=== PATIENT | female | born 1980 | race Caucasian/White ===

== ENCOUNTER → 2022-10-25 12:02 | Outpatient (BNVA) | payer OTHER, SELFPAY | PROVIDERS: Visit Provider Physician Assistant | DX: Z13.89 Encounter for screening for other disorder (principal) | CPT/HCPCS: 99213 ==

== ENCOUNTER 2023-04-24 09:45 | Outpatient (RCR) | payer OTHER, SELFPAY ==
--- NOTE | 2023-04-12 11:31 | P.HPPSP_ITS ---
HPI Date of Service: 04/12/23 Chief Complaint: anxiety,depression,JANNIE Sources of Information: patient interviewed, chart reviewed and crisis/core team assessment reviewed HPI Medical Problems Affecting Mental Status: No Narrative: Patient is a 42-year-old female, referred to [facility] through [facility]. 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 DCF was called, her 13-year-old son was temporarily removed from her home, residing with her friend. She was instructed that as a requirement being able to return to work, she needs to complete a PHP, and was referred here. She was angry/irritable during interview, states that she feels she was ?set up? by her supervisor newspaper deliveries. 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 On March 17 she says she relapsed for 1 day, and used heroin. Also has a history of IV cocaine use, states she has not used cocaine in past 2.5 years. Precipitants include a recent reduction in her methadone dosing, issues with her son that she did not wish to elaborate upon, and what she describes as a pink cloud , a hypomanic episode. She states her 2 sisters and her mother were all diagnosed with bipolar disorder. She explains that approximately 4 times per year, she has episodes 1-2 weeks at a time, with rapid, pressured speech, elevated mood, increased energy, little sleep but not feeling tired. She also experiences impulsive behaviors during this time. She denies any fully manic episodes. She has been diagnosed with depression, currently receives Celexa 10 mg. She had gastric sleeve surgery in October 2022, and reports her medication was changed at that time. She has been referred to [facility] for outpatient treatment, and is scheduled for an intake soon. Currently her primary care provider is prescribing her medications. She receives her methadone from [facility] in [place], reports that she has been working with them past 3 years. Describes a traumatic childhood, reports that she has had occasional depressed mood, has had therapy and providers in the past. Past Psychiatric History: Multiple detox/rehab, most recent in [id number]. No inpatient psych No PHP Past history therapy Will begin with services at [facility] for therapy/provider soon Medical Evaluation Reviewed: Yes [facility] Narrative: asthma Narrative: gastric sleeve surgery Family History: Mother, 2 sisters diagnosed with bipolar disorder Substance use disorder throughout immediate and extended family Social History: Raised by both parents, 1 biological sister, 1/2 sister. Parents when she was 13. Significant childhood trauma, both parents had JANNIE. Both parents now . Graduated high school, obtained associate degree. , 2 children. Substance History: Began using opioids age 32. Cocaine off and on. Last use cocaine 2.5 years ago. Maintain sobriety from opioids for 3 years, reports a 1 day relapse on 03/17/2023. Receives methadone from [facility]. Current DCF involvement. Trauma History: Chaotic childhood, both parents were active substance users. Victim, emotional, witness. Meds/Allergies Allergies Allergies Allergy/AdvReac Type Severity Reaction Status Date / Time No Known Allergies Allergy Unverified 07/29/20 19:00 [No Known Allergies*] Mental Status Exam Mental Status Exam Narrative: Well-developed, well-nourished, in NAD. Normal ambulation/posture. No tics or tremors, no abnormal movements. Guarded, irritable during interview. Rapid speech Patient Appearance: Appropriate Patient Orientation: Person, Place, Time and Situation Level of Consciousness: Appropriate Patient Behavior: Guarded, Suspicious and Good Eye Contact Mood Description: Angry (Describes that she is frustrated ) Affect Description: Labile and Angry Patient Cognition Impaired: No Ability to Follow Directions: Excellent Speech Pattern: Clear, Rapid and Loud Memory Description: Intact Hallucinations: None Delusions: Not Present Thought Process: Intact Thought Content: positive for Intact Depressive Symptoms: Increased Anxiety, Hopelessness, Feelings of Guilt and Difficulty Concentrating Judgement: Fair Assessment & Plan Assessment & Plan (1) Opioid dependence, uncomplicated: Status: Acute Code(s): F11.20 - Opioid dependence, uncomplicated Assessment and Plan: Patient reports long history opioid use disorder, started injecting heroin at age 32. Has been sober 3 years until a recent 1 day relapse on March 17. Currently enrolled in a methadone clinic in [place]. Reports that she was experiencing multiple stressors, and was in midst of what appears to be a hypomanic episode. She had also recently had her methadone dose decreased by 5 mg. She had gastric sleeve surgery several months ago, and had told her provider she was feeling drowsy with the methadone dose. We discussed asking provider to increase does possibly by 2 or 3 mg daily. Also participating in substance use groups while here. She was in agreement with this. (2) Major depressive disorder, recurrent, moderate: Status: Acute Code(s): F33.1 - Major depressive disorder, recurrent, moderate Assessment and Plan: Patient comes to this program with the diagnosis of depression. However, upon interview, she reports a history of bipolar symptoms, including periods of distractibility, irresponsibility, grandiosity, flight of ideas, little to no sleep and not feeling tired, talkativeness, days with increased energy, feeling great, super productivity. She states that these have occurred several times in a year, and then appear to resolve. Does not report using any substances during these periods of time. Also does not report any symptoms of severe depression. States that ?occasionally I get a depressed mood ?, but states that it is not ongoing. Does report getting anxious, states that this due to multiple stressors in her life. We discussed her current medication regimen. She currently is taking Celexa 10 mg. She is currently taking Topamax 50 mg, Abilify 5 mg. She reports that the Topamax to help with depression, the Abilify to help with mood stabilization. We discussed trialing oxcarbazepine. Patient will read about this medication before making a decision. (3) Bipolar 1 disorder: Status: Acute Code(s): F31.9 - Bipolar disorder, unspecified Plan 1. Continue with current [facility] plan of care. 2. Continue with current medication regimen as prescribed by outpatient provider. 3. Obtain labs and EKG. 4. Follow-up as per protocol. Patient educated on: diagnosis, medication risk/benefits, substance abuse and therapeutic strategies Informed Consent: understands Reason for continued partial hosp. stay Substantial Risk for: inability to function and rapid decompensation Certification I certify that partial hospital treatment is medically necessary due to the symptoms and problems resulting from the patient's mental illness and the failure to treat the patient at the partial hospital level of care would likely result in the patient requiring inpatient psychiatric care which could not be prevented at a less intensive level of care. Time Spent With Patient Time: Total time managing care of this patient today _60__ minutes.
--- NOTE | 2023-04-12 15:15 | HO.PHP ---
Clients case was reviewed and opened today in treatment team.
[2023-04-13 10:17] VITALS: BP 102/60; PULSE 80; TEMP 36.5
[2023-04-13 10:47] VITALS: BMI 33.5
--- NOTE | 2023-04-13 11:33 | PC.ADMIT ---
Patient is a 42 year old female who was referred by [facility] where Sol has been employed for the past year d/t relapsing on Heroin on March 17, 2023 after 3 years sobriety. Patient is on Methadone currently. 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 Patient also struggling with depression and anxiety. Denied SI. Patient noted by staff to be nodding off in morning group. I completed this nursing assessment on patient today as she left early yesterday as her boyfriends father passed suddenly. I reviewed with Sol that staff noted her to be nodding off in group and we were concerned about this. She stated that she took her Methadone dose at 0600 this morning and that it peaks at this time. She stated she noticed she was nodding off as well and stood up in the group as a result. She also stated she had a difficult time sleeping last night and woke up at 0430 this morning. She is alert and oriented x4. Calm and cooperative. VSS. She denied using any substances including IV Heroin and Cocaine. I asked her to complete a MORE and she was compliant. [facility] staff are aware. Patient medications reconciled with patient's pharmacy and patient. She reports she takes her medications as prescribed.
[2023-04-13 11:41] LABS: Amphetamine Screen Urine Not Detected (Not Detect); Barbiturates, Urine Not Detected (Not Detect); Benzodiazepines Screen Urine Not Detected (Not Detect); Cannabinoid Screen Urine Not Detected (Not Detect); Cocaine Screen Urine Not Detected (Not Detect); Fentanyl, urine POSITIVE (Not Detect); Opiate Screen Urine Not Detected (Not Detect); Phencyclidine Screen Urine Not Detected (Not Detect)
--- NOTE | 2023-04-13 15:01 | HO.PHP ---
[facility] staff met with Sol due to her testing positive for fentanyl. [facility] staff reviewed the positive drug screen with Sol and provided providers recommendation by attending a detox program. Sol became argumentative and was swearing at and towards the staff. Sol had stated that she has not been using fentanyl and the last time she had used was March 17, 2023. Sol disclosed that she has been testing positive for fentanyl for 3 weeks and has the test strips at home. Sol continued to voice she is not high and asked if she could go to the group or go home. [facility] staff informed her due to safety concerns and how she presented within the group setting today (struggling to stay awake and not being actively engaged), we feel it is best to order a lyft and that she does not drive home. Sol continued to escalate and become upset verbally. [facility] staff encouraged Sol to meet with the senior db2 systems programmer but Sol did not want to do that. [facility] staff still got the senior db2 systems programmer due to how escalated she was. Sol was able to regulate but was still swearing out of frustration. The transition program manager encouraged her to think about detox over the weekend and informed her that she is going to order her a lyft. The transition program manager informed Sol that we are concerned about her safety and well being and want to make sure she is safe. Sol continued to deny being high and noted feeling frustrated that individuals continue to say she is on drugs when she is not using. Sol handed the senior db2 systems programmer her keys to let her know she would not be leaving. Sol was able to regulate and walk to the [facility] while awaiting the pharmacy delivery driver. [employer] had no available drivers so Sol's boyfriend noted he would pick her up. While waiting Sol asked what she would be detoxing from if she is already on methadone. [facility] staff informed her from fentanyl and encouraged her to talk to the methadone clinic around the side effects around using fentanyl while on methadone. Sol disclosed she will when she goes Sunday. [facility] staff was receptive. Sol also talked about other providers who addressed how she has presented as being under the influence of a substance and also noted negative outcomes that her nps recently informed her of. Sol was emotional when expressing this. Sol was appropriate and cooperative once she was able to process. Sol talked about her job and what her new position is. 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 [facility] staff encouraged Sol to have someone drive back with her and her boyfriend so someone can drive her car home. Slo was receptive. When Sol's boyfriend had arrived, [facility] staff walked Sol to the car, in which the boyfriend became verbally upset informing staff that we are ridiculous. [facility] staff did not acknowledge the boyfriends reaction. [facility] staff encouraged Sol to have a great weekend and we will see her Sunday. Sol was receptive. [facility] staff provided her with her keys and her and her boyfriend drove off.
--- NOTE | 2023-04-16 12:28 | PM.EVENT ---
Event Note Date of Service: 04/16/23 Event Note: Met with patient to complete FMLA paperwork Time Spent With Patient Time: Total time managing care of this patient today _15___ minutes.
[2023-04-17 13:33] LABS: Amphetamine Screen Urine Not Detected (Not Detect); Barbiturates, Urine Not Detected (Not Detect); Benzodiazepines Screen Urine Not Detected (Not Detect); Cannabinoid Screen Urine Not Detected (Not Detect); Cocaine Screen Urine Not Detected (Not Detect); Fentanyl, urine POSITIVE (Not Detect); Opiate Screen Urine Not Detected (Not Detect); Phencyclidine Screen Urine Not Detected (Not Detect)
--- NOTE | 2023-04-19 11:18 | P.PNPSP_ITS ---
Subjective Subjective Date of Service: 04/19/23 Reason For Visit: anxiety,depression,JANNIE Medical Problems Affecting Mental Status: No Interim History: Clinicians report patient has been not in off in groups throughout the day. Patient reports that it is hard for her to sit all day, finds it monotonous at times. Has sleep apnea, has not been receiving adequate sleep, has not been using her CPAP. Reports she has remained abstinent from substances. Describes mood as ?good, I feels stable ?. No SI/HI, no safety concerns. Lost paperwork for labs and EKG. Medication Compliance: Yes Side effects from medications: Yes (Sedation, possibly related to methadone dose) Attending Groups: Yes Review of Systems Acute medical concerns: No Medical Review of Systems: unchanged Review of Systems Review of Systems Sleep apnea Yes all other systems are reviewed and are negative Constitutional: Reports no additional constitutional complaints Mental Status Exam Mental Status Exam Narrative: NAD Patient Appearance: Appropriate Patient Orientation: Person, Place, Time and Situation Level of Consciousness: Appropriate Patient Behavior: Appropriate, Cooperative and Good Eye Contact Mood Description: Appropriate Affect Description: Anxious (Slightly anxious) Patient Cognition Impaired: No Ability to Follow Directions: Excellent Speech Pattern: Clear and Appropriate Memory Description: Intact Hallucinations: None Delusions: Not Present Thought Process: Intact Thought Content: positive for Intact Depressive Symptoms: Increased Anxiety, Feelings of Guilt and Difficulty Concentrating Judgement: Fair Diagnostics Vital Signs (24Hr): BMI result Body Mass Index 33.5 Labs Labs: Laboratory Results - last 48 hr 04/17/23 12:40 Urine Opiates Screen Not Detected Urine Fentanyl Screen POSITIVE H Ur Barbiturates Screen Not Detected Ur Phencyclidine Scrn Not Detected Ur Amphetamines Screen Not Detected U Benzodiazepines Scrn Not Detected Urine Cocaine Screen Not Detected U Marijuana (THC) Screen Not Detected Assessment & Plan Assessment & Plan (1) Opioid dependence, uncomplicated: Status: Acute Code(s): F11.20 - Opioid dependence, uncomplicated Assessment and Plan: Clinicians report patient has been not in off in groups throughout the day. Discussed her methadone dosing, both the dose itself and the schedule. She takes 65 mg in the morning. She has take home doses, will take her take home dose tomorrow after program, to see if this helps with level of sedation. Reports that the group room is hot, which adds to her feeling tired. We also discussed having dose lowered, as she had gastric sleeve surgery completed in October, this could be causing AP issue with over-sedation, related to level of absorption. Release of information form completed, this provider to reach out to provider at methadone clinic. Patient reports that it is hard for her to sit all day, finds it monotonous at times. Discussed several things that she could do, including sitting by the window, drinking water, getting up in stretching. She stated that she would try these things. Has sleep apnea, has not been receiving adequate sleep, has not been using her CPAP. She reports she will try her CPAP tonight, to see if it helps improve her level of alertness tomorrow. Reports she has remained abstinent from substances. Describes mood as ?good, I feels stable ?. Taking medications as prescribed. We discussed changing timing of her Abilify and topiramate to evenings, to see if this also will help improve her level of alertness in the morning. No SI/HI, no safety concerns. Lost paperwork for labs and EKG. Reviewed labs to be ordered, including Chem profile, CBC, as well as EKG. Discussed positive fentanyl screens, waiting for expanded panel results. Patient states she is willing to submit to any testing that is requested, as she has not used any substances except for the 1 time in early March. (2) Major depressive disorder, recurrent, moderate: Status: Acute Code(s): F33.1 - Major depressive disorder, recurrent, moderate (3) Bipolar 1 disorder: Status: Acute Code(s): F31.9 - Bipolar disorder, unspecified Assessment and Plan: Provisional dx. No mood lability reported or observed, no evidence of hypomania or miles present. Plan 1. Speak with provider at methadone Clinic, our ED: Changing dosing schedule to evenings, possible dose decrease. This functional tester typewriters has left several messages for provider to call back. 2. Patient will use her CPAP machine tonight, as well as switching her Abilify and Topamax scheduling from morning to evening. 3. Patient will hold off on morning methadone tomorrow morning, will use her take home dose after program. 4. Lab slip provided for Chem profile, CBC, EKG. 5. Follow-up as per protocol. Patient educated on: diagnosis, medication risk/benefits, substance abuse and therapeutic strategies Reason for contiued partial hosp. stay Substantial Risk for: inability to function, rapid decompensation and med/psych decompensation Certification I certify that partial hospital treatment is medically necessary due to the symptoms and problems resulting from the patient's mental illness and the failure to treat the patient at the partial hospital level of care would likely result in the patient requiring inpatient psychiatric care which could not be prevented at a less intensive level of care. Total time managing care of this patient today __30__ minutes. Discharge Plan Discharge Attending provider: Benjamín Temple Medications: No Action aripiprazole 5 mg tablet 5 mg PO DAILY topiramate 50 mg tablet 50 mg PO DAILY methadone [Methadone Intensol] 10 mg/mL Concentrate 65 mg PO DAILY albuterol sulfate [Ventolin HFA] 90 mcg/actuation HFA aerosol inhaler 1 puff INHALATION QID PRN (Reason: wheezing) escitalopram oxalate 10 mg tablet 10 mg PO DAILY budesonide-formoterol [Symbicort] 160-4.5 mcg/actuation HFA aerosol inhaler 2 inh inhalation BID
[2023-04-24 08:36] LABS: Codeine, Ur NEGATIVE; Hydrocodone, Ur NEGATIVE; Morphine, Ur NEGATIVE; Oxycodone, Ur NEGATIVE
[2023-04-24 08:37] LABS: Hydromorphone, Ur NEGATIVE; Norhydrocodone, Ur NEGATIVE; Noroxycodone, Ur NEGATIVE; Oxymorphone, Ur NEGATIVE
--- NOTE | 2023-04-24 14:03 | HO.PHP ---
[facility] staff member's, Anthony met with Sol to explore discharge. [facility] staff members thanked Sol for coming to groups and noted that it must be challenging for her since she appears to be tired. Sol acknowledged that it has been challenging and they are working on reducing her methadone now but it takes time for her to see affects. The team acknowledged the challenges she is having and voiced that we know tomorrow she won't be attending program and Sunday she won't be either. [facility] staff members asked Sol if it makes sense to discharge today. Sol agreed and explored if she would receive paperwork stating she completed the program. [facility] staff members informed her that she will have discharge paperwork to show her completion. Sol was receptive.
== END 2023-04-24 23:59 | disposition home or self-care (01) ==
LOC: HO.PHPA 09:45
PROVIDERS: Nurse Practitioner Psychiatric/Mental Health; Visit Provider Psychiatry & Neurology Psychiatry
DX: F33.1 Major depressive disorder, recurrent, moderate (principal); F31.9 Bipolar disorder, unspecified; F41.1 Generalized anxiety disorder; F11.20 Opioid dependence, uncomplicated
CPT/HCPCS: 80307; 80364; 80365; 90791; 90853

== ENCOUNTER 2025-10-18 11:30 | Emergency (ER) | payer OTHER, SELFPAY ==
--- OUTSIDE RECORDS SUMMARY | 2025-07-07 10:30 | XMS_ITS ---
Author Organization [facility] Address [address] [place] [address] Care Team Providers Care Crop Duster Helper Name Role Phone JOYA PATRICK Unavailable [phone] REASON FOR VISIT IUD Out Social History Sex Assigned At : Social History Observation Description Sex Assigned At Female Encounters Encounter Location Date Provider Diagnosis [facility] [address] [place] [address] [id number] 07/07/2025 JOYA PATRICK Plan Of Treatment Next Appt Details Provider Name:SRIKANTH LANE, 09:00:00 AM, [address] [place] [address], [id number], Progress Notes * Sol OLEA RDOB:12/1979 (45 yo F)Acc No.[id number]:07/07/2025 Progress Note Patient: Sol Almonte Provider: Susie Patrick NP :1980 A ge:44 Y S ex:Female Date:07/07/2025 Address:[address] [place], [place] [id number] Subjective: * Chief Complaints: * I UD Out * Electronic signature of ELLEN PATRICK NP on 10/18/2025 at 01:00 PM EST Sign off status: Pending * Provider: Susie Patrick NP Date: 0 07/07/2025 Generated for Printi ng/Faxing/eTransmitting on: 1 12/19/2024 01:00 PM EST
--- OUTSIDE RECORDS SUMMARY | 2025-10-14 04:15 | XMS_ITS ---
Author Organization [facility] Address [address] [place] [address] Care Team Providers Care Lan Administrator Name Role Phone SRIKANTH LANE Unavailable [phone] REASON FOR VISIT Annual Exam, IUD removal Medications Medication SIG (Take, Route, Frequency, Duration) Notes Start Date End Date Status Symbicort Active SEROquel Active Mirena inserted 08/31/2015 Active Lexapro Active Social History Sex Assigned At : Social History Observation Description Sex Assigned At Female Social History HIV Risk Assessment Social Info Question Answer Notes Additional Questions Is an HIV Risk Assessment being c onducted? No Reproductive Life Plan: Social Info Question Answer Notes Reproductive Life Plan: Do you want to have children? No How sure are you that you will be able to use your control method without any problems? Very sure Human Trafficking: Social Info Question Answer Notes Human Trafficking Experienced: No PrEP for HIV: Social Info Question Answer Notes PrEP for HIV Is the client intere sted in beginning/continuing PrEP for HIV? No Sexual History: Social Info Question Answer Notes Sexual History: Sexual History Reviewed: Partner s, Practices, Prevention of Currently sexually active? Yes Sexually active with: Men Number of male partners 1 technician terminal and repeater partner Your sexual activities include: oral intercourse, vaginal intercourse Date of last unprotected intercourse: 09/30/2025 Number of partners in past 3 months: 1 Number of partners in past year: 1 What is the client's primary method to prevent at the end of their visit? IUD - Mirena Completed Gardasil vaccinati on series? Yes Counseling Provided: Social Info Question Answer Notes Counseling Provided Please indicate the length of time, in minutes, that counseling was provided. 6 Counseling Was Provided By: mela Drugs/Alcohol: Social Info Question Answer Notes Drug/Alcohol Use Do you or have you used drugs? No Do you or have you used alcohol? No Food Access: Social Info Question Answer Notes Food Access The Client's current access to food is Secure Food Access Relationships: Social Info Question Answer Notes Relationships Has the client exper ienced any of the following: Client has never experienced harmful relationships Housing Social Info Question Answer Notes Housing The client's current living situation is: stable housing Tobacco Use: Social Info Question Answer Notes Tobacco Use: Do you/have you used tobacco? No Client Vapes Tobacco Smoking Status Former smoker Section Notes: Declines STI testing Encounters Encounter Location Date Provider Diagnosis [address] [id number] 10/14/[address] Encounter for gynecological examination (general) (routine) without abnormal findings Z01.419 ; Encounter for screening for human papillomavirus (HPV) Z11.51 and IUD Removal Z30.432 Assessments Encounter Date Diagnosis (ICD Code) Assessment Notes Treatment Notes Treatment Clinical Notes Section Notes 10/14/2025 Encounter for gynecological examination (general) (routine) without abnormal findings (ICD-10 - Z01.419) Discussed routine screenings and self breast/chest awareness. Mammogram screening recommendations reviewed. Clt up to date. Pap guidelines reviewed and pap collected. Will confirm follow up plan regarding pap screening given hx of abn once results back. 10/14/2025 Encounter for screening for human papillomavirus (HPV) (ICD-10 - Z11.51) 10/14/2025 IUD Removal (ICD-10 - Z30.432) IUD strings present on exam today. Clt provided verbal consent for removal today. Pap consent signed after procedure. Clt tolerated well. Clt to schedule Nexplanon insertion. Condom use encouraged. Clt declined urine PT today Plan Of Treatment Treatment Notes Assessment Notes Encounter for gynecological examination (general) (routine) without abnormal findings Discussed routine screenings and self breast/chest awareness. Mammogram screening recommendations reviewed. Clt up to date. Pap guidelines reviewed and pap collected. Will confirm follow up plan regarding pap screening given hx of abn once results back. IUD Removal IUD strings present on exam today. Clt provided verbal consent for removal today. Pap consent signed after procedure. Clt tolerated well. Clt to schedule Nexplanon insertion. Condom use encouraged. Clt declined urine PT today Pending Test Test Name Order Date IGP, Apt HPV,rfx 16/[id number] Next Appt Details Follow Up: soon, Reason: Nex planon insertion Provider Name:SRIKANTH LANE, 09:00:00 AM, [address] [place] [address], [place], [place], [phone], Procedure Notes * Category Sub-Category Detail Notes IUD Removal Consent Risks and benefi ts discussed. All questions answered. Informed consent signed Procedure Patient was placed i n the dorsal lithotomy position. A speculum was inserted into the vagina. IUD strings grasped with ring forceps and IUD removed easily. The patient tolerated the procedure well. History and Physical Notes * HPI (History of Present Illness) Category Sub-Category Detail Notes Category Not es Visit Narrative Reason for the visit: Annual Visit Declines STI testing Clt here for annual exam. Last pap: 2020 NIL, HPV neg. HPV positive in 2018. Due for repeat pap BR concerns: none Mammogram: 1 month ago, normal per clt. Hx of complex BR cyst in 2020. No concerns today SENIOR BUSINESS ARCHITECT concerns: none, no menses Urinary concerns: none BC: plans to have Nexplanon inserted. Would like IUD removed today if strings visible STI: reports testing just done recently with outside provider- declines today Mirena IUD since 08/2015. No strings back in 2022 for removal. Has not have imaging or removal attempt since. Would like removal today if strings present. Has referral to SENIOR BUSINESS ARCHITECT thru [facility] [place] for removal otherwise- no appointment scheduled yet Current form of control: Mirena Presenting Symptoms: No sx LMP: 10/12/2009 About 16 years ago per client Last date of UPI: 09/30/25 Other notes for the Clinician: Clients l ast appt they could not find IUD strings for removal and she would like it removed. Client would like clincian to check to see if strings can be found if not she has a referral from her PCP for U/s to remove Mirena Date of last pap smear: 2020 per client NIL/ HPV negative History of abnormal pap smears: Yes Client would like breast exam done/ no current breast concerns Examination Category Sub-Category Detail Notes Category Not es General Exam CONSTITUTIONAL: General Appearan ce:: alert, in no acute distress Clt opted to defer BR exam as just done recently NECK/THYROID: Inspection/Palpation:: normal Thyroid:: normal size and shape RESPIRATORY: Auscultation:: clear to ausculta tion bilaterally Respiratory Effort:: normal CARDIOVASCULAR: Auscultation:: regular rate and rhythm GASTROINTESTINAL: Abdomen:: no masses, nontender , nondistended SKIN: Skin:: no suspicious lesions, wa rm and dry NEURO/PSYCH: Orientation:: time , place, pers on Mood/Affect:: normal Genitourinary EXTERNAL GENITALIA: External Gen nolvia:: normal, no lesions Clt opted to defer bimanual exam VAGINA: Vagina:: normal appe arance, no abnormal discharge, no lesions URETHRAL MEATUS: Urethral Meatus:: normal CERVIX: Cervix:: no lesions, nontender I UD strings present ANUS AND PERINEUM: Anus/Perineum:: visually norm al Progress Notes * Sol OLEA RDOB:12/1979 (45 yo F)Acc No.[id number]:10/14/2025 Progress Notes Patient: Sol Almonte Provider: Sylvester LANE :1980 A ge:45 Y S ex:Female Date:10/14/2025 Address:[address] [place], [place] [id number] Subjective: * Chief Complaints: * A nnual ExamIUD removal * HPI: V isit Narrative: Reason for the visit: A nnual Visit. Current form of control: M mayda. Presenting Symptoms: N o sx. LMP: 1 12/13/2008 About 16 years ago per client. Last date of UPI: 1 11/30/24. Other notes for the Clinician: Regina hickey last appt they could not find IUD strings for removal and she would like it removed. Client would like clincian to check to see if strings can be found if not she has a referral from her PCP for U/s to remove Mirena Date of last pap smear: 2020 per client NIL/ HPV negative History of abnormal pap smears: Yes Client would like breast exam done/ no current breast concerns. Declines STI testing Clt here for annual exam. Last pap: 2020 NIL, HPV neg. HPV positive in 2018. Due for repeat pap BR concerns: none Mammogram: 1 month ago, normal per clt. Hx of complex BR cyst in 2020. No concerns today SENIOR BUSINESS ARCHITECT concerns: none, no menses Urinary concerns: none BC: plans to have Nexplanon inserted. Would like IUD removed today if strings visible STI: reports testing just done recently with outside provider- declines today Mirena IUD since 08/2015. No strings back in 2022 for removal. Has not have imaging or removal attempt since. Would like removal today if strings present. Has referral to SENIOR BUSINESS ARCHITECT thru [facility] [place] PCP for removal otherwise- no appointment scheduled yet. * ROS: s ee HPI. * Medical History: Asthma Abnormal paps- >10 years ago, 2017 +Hep C treated BV Treated proph for syphilis 02/2016 after known exposure HSV 2 Hx of IVDA, last use Medical History Verified * Silver Steward History: A bnormal pap smear: > 10 years ago. B irth control: M mayda intrauterine device. L ast mammogram date: 11/2024: Mammogram screening normal per clt.06.30.21 F/u ultrasound reviewed. Near complete resolution of complex cystic area. BIRADS 2 benign. No further management needed at this time. Recommend routine annual mammogram screeningReviewed 6 month follow up of L BR complex cyst at 9:00, 7cm from nipple has almost completely resoved. Most likely represented an area of fat necrosis. New area of complainted evaluted at 11:00, 6cm from nipple. 1.8cm complex cyst with increase vascularity suspicious for an infectious/inflammatory process. Clinical management recommended with follow up ultrasound in 6 weeks after treatment.L BR lump. Mammo/Ultrasound done on 10.15.2020. BIRADS 3 probably benign. Found area with mixed echogenicity [id number] with no internal flow that may represent a complex cyst. Recommended follow up ultrasound in 6 months.. L ast menstrual period: 2 009 due to reocurrent IUD use. L ast pap smear date: 12/15/24 pap [id number]- NIL/HPV [id number] NIL, HPV neg, repeat 1 yr06/18/2018 NIL, HPV+. Repeat 1 yr. M enarche: A ge of menarche [age] P eriods: a menorrhea due to Mirena. S exual activity: c urrently sexually active, with men. S exually Transmitted Diseases (STDs): N one. U nprotected sex in the last 5 days?: N o. U nprotected sex in the past 10 days?: N o. * OB History: T otal pregnancies: 5 . T otal living children: 2 . A bortion(s): 2 . M iscarriage(s): 1 . C section(s): 2 . P regnancy # 1: P rimary . P regnancy # 2: R epeat . * Surgical History: Lung biopsy to r/o malignancy after snorting cocaine 2012 C-sec 2005 C-sec 2009 Gastric Bypass 2022 Surgical History verified. * Hospitalization/Major Diagno stic Procedure: No Hospitalization Documented. Hospitalization Verified. * Family History: F ather: diagnosed with HBP, Diabetes, Heart Disease. F amily History Verified.. * Social History: F ood Access: F ood Access T he Client's current access to food is S ecure Food Access H ousing: H ousing T he client's current living situation is:?stable housing R eproductive Life Plan: R eproductive Life Plan D o you want to have children? N o H ow sure are you that you will be able to use your control method without any problems? V pre[place] sure S exual History: S exual History S exual History Reviewed: P artners, Practices, Prevention of C urrently sexually active? Y es S exually active with: M en N umber of male partners 1 technician terminal and repeater partner Y our sexual activities include: o ral intercourse, vaginal intercourse D ate of last unprotected intercourse: 1 11/30/2024 N umber of partners in past 3 months: 1 N umber of partners in past year: 1 W hat is the client's primary method to prevent at the end of their visit? I UD - Mirena C ompleted Gardasil vaccination series? Y es H IV Risk Assessment: A dditional Questions I s an HIV Risk Assessment being conducted??No P rEP for HIV: P rEP for HIV I s the client interested in beginning/continuing PrEP for HIV? N o R elationships: R elationships H as the client experienced any of the following: Regina cortes has never experienced harmful relationships H uman Trafficking: H uman Trafficking E xperienced: N o T obacco Use: T obacco Use D o you/have you used tobacco? N o Client Vapes T obacco Smoking Status F ormer smoker D rugs/Alcohol: D rug/Alcohol Use D o you or have you used drugs? N o D o you or have you used alcohol? N o Regina ryder Provided: Regina ryder Provided P lease indicate the length of time, in minutes, that counseling was provided. 6 Regina ryder Was Provided By: sylvester Guerrero ocial History Verified. Lyssa harper STI testing. * Medications: T akingLexapro SEROquel Mirena , Notes to Pharmacist: inserted 08/31/2015Symbicort Taking Lexapro Taking SEROquel Taking Mirena , Notes to Pharmacist: inserted 08/31/2015Taking Symbicort DiscontinuedAbilify ProAir HFA Topamax Escitalopram Oxalate , Notes to Pharmacist: 10mgMethadone HCl hydrOXYzine HCl Suboxone Flovent HFA Medication List reviewed and reconciled with the patientDiscontinued Abilify Discontinued ProAir HFA Discontinued Topamax Discontinued Escitalopram Oxalate , Notes to Pharmacist: 10mgDiscontinued Methadone HCl Discontinued hydrOXYzine HCl Discontinued Suboxone Discontinued Flovent HFA Medication List reviewed and reconciled with the patient * Allergies: y esAllergies Verified. Objective: * Examination: G enitourinary: EXTERNAL GENITALIA: ?VAGINA:? Vagina: n ormal appearance, no abnormal discharge, no lesions ?URETHRAL MEATUS:? Urethral Meatus: n ormal ?CERVIX:? Cervix: n o lesions, non-tender IUD strings present ?ANUS AND PERINEUM:? Anus/Perineum: v isually normal ???Clt opted to defer bimanual exam. ???General Exam: ?CONSTITUTIONAL:? General Appearance: a lert, in no acute distress ?NECK/THYROID:? Inspection/Palpation : n ormal ? Thyroid: n ormal size and shape ?RESPIRATORY:? Auscultation: c lear to auscultation bilaterally ? Respiratory Effort: n ormal ?CARDIOVASCULAR:? Auscultation: r egular rate and rhythm ?GASTROINTESTINAL:? Abdomen: n o masses, nontender, nondistended ?SKIN:? Skin: n o suspicious lesions, warm and dry ?NEURO/PSYCH:? Orientation: t ashok , place, person ? Mood/Affect: n ormal ???Clt opted to defer BR exam as just done recently. Assessment: * Assessment: 1. E ncounter for gynecological examination (general) (routine) without abnormal findings - Z01.419 (Primary) 2 . E ncounter for screening for human papillomavirus (HPV) - Z11.51 3 . I UD Removal - Z30.432 Plan: * Treatment: 2. E ncounter for screening for human papillomavirus (HPV) L AB: IGP, Apt HPV,rfx 16/18,[id number] (Collection Date & Time - 10/14/2025 10:05 AM) 3. I UD Removal Notes: IUD strings present on exam today. Clt provided verbal consent for removal today. Pap consent signed after procedure. Clt tolerated well. Clt to schedule Nexplanon insertion. Condom use encouraged. Clt declined urine PT today * Procedures: I UD Removal: Consent R isks and benefits discussed. All questions answered. Informed consent signed. Procedure P atient was placed in the dorsal lithotomy position. A speculum was inserted into the vagina. IUD strings grasped with ring forceps and IUD removed easily. The patient tolerated the procedure well.. * Procedure Codes: 5 8301 IUD removal * Follow Up: s oon (Reason: Nexplanon insertion) Billing Information: * Visit Code: 41395 Existing Preventative - Age 40-64 (IN USE). * Procedure Codes: 12599 IUD removal. * Sign off status: Completed true * Provider: Sylvester LANE Date: 12/15/2024 Generated for Belinda hassan/Stu/Randi on: 12/19/2024 01:00 PM EST
[2025-10-18 11:37] VITALS: BP 112/64; PULSE 85; RESP 18; TEMP 36.6; O2SAT 98; BMI 25.7
--- NOTE | 2025-10-18 11:37 | ED.PSYCH ---
HPI - Psych General Chief Complaint: General Medical Stated Complaint: Mental health/ substance absuse issues Time Seen by Provider: 10/18/25 12:40 Source: patient, RN notes reviewed and old records reviewed Mode of arrival: ambulatory History of Present Illness ED Provider: Ember Michael PA-C HPI Narrative: 45-year-old female with a past medical history bipolar, MDD, opiate dependence, presenting to the ED complaining of relapse on cocaine and fentanyl few days ago. States had to leave [facility] & is seeking treatment/detox. Admits she recently tapered off Methadone & is not interested in restarting it. States her sister a few weeks ago & has been having a hard time. Denies SI/HI or ETOH use Related Data Home Medications ?Medication ?Instructions ?Recorded ?Confirmed albuterol sulfate 90 mcg/actuation 1 puff inhalation QID PRN wheezing 04/13/23 04/13/23 aerosol inhaler (Ventolin HFA) aripiprazole 5 mg tablet 5 mg PO DAILY 04/13/23 04/13/23 budesonide-formoterol HFA 160 2 inh inhalation BID 04/13/23 04/13/23 mcg-4.5 mcg/actuation aerosol inhaler (Symbicort) escitalopram oxalate 10 mg tablet 10 mg PO DAILY 04/13/23 04/13/23 methadone 10 mg/mL oral 65 mg PO DAILY 04/13/23 04/13/23 concentrate (Methadone Intensol) topiramate 50 mg tablet 50 mg PO DAILY 04/13/23 04/13/23 Allergies Allergy/AdvReac Type Severity Reaction Status Date / Time No Known Allergies (No Known Allergy Verified 10/18/25 11:39 Allergies*) Review of Systems Review of Systems: Yes all other systems are reviewed and are negative Constitutional: Constitutional: Reports as per HPI [facility] Past Medical History Attestation statement: The following information was validated with the patient. Source: old records reviewed Medical History Pneumonia delivery delivered Surgical History History of lung biopsy History of gastric bypass Social History Social History Household Members: Significant Other Patient Tobacco Use Status: Current everyday Tobacco user Tobacco use type: Cigarette Advance Directives: No Advance Directives Information Provided: No Do you have a plan to hurt others: No Plan Physical Exam Vital Signs: Vital Signs: Last Vital Signs Temp 98 F 10/18/25 11:37 Pulse 85 10/18/25 11:37 Resp 18 10/18/25 11:37 BP 112/64 10/18/25 11:37 Pulse Ox 98 10/18/25 11:37 O2 Del Method Room Air 10/18/25 11:37 BMI result Body Mass Index 25.7 Const: General: cooperative, healthy appearing and no acute distress Orientation/consciousness: patient oriented x3 Limitations: no limitations HEENT: Head: Yes normal to inspection and Yes atraumatic Ears: hearing grossly normal bilaterally General nose exam: Normal external nose present Face and sinus: Yes normal facial exam Eyes: General: appearance normal, both eyes and all related structures EOM: EOMs intact bilaterally Neck: Neck: Yes normal visual inspection and Yes no meningeal signs Resp: Effort & Inspection: normal respiratory effort and no respiratory distress Cardio: Rate: regular rate Skin: Rashes: no rashes Wounds: no wounds Neuro: General: patient oriented x3, tone normal and no meningeal signs Cranial nerves: Yes CN's II-XII intact bilaterally Gait exam (Neuro): Normal gait present Extrem: General: Yes normal to inspection Psych: Thought content: suicidality and no homicidality Course Course Course Narrative: This is a Rapid Medical Exam performed in triage by Ember Michael PA-C. Full HPI, ROS and PE to be performed by primary ED provider. 45 yo F w/pmhx bipolar, opiate use d/o presenting to the ED c/o relapsed using cocaine & fentanyl the other day while at [facility] & was sent to the ED for tx. States she recently was able to get off Methadone & does not want to go back on it. States sister a few weeks ago & has been having a hard time. denies SI/HI. denies having place to stay. denies ETOH use PE: NAD, nontoxic appearing Plan: MORE, ethanol, recovery consult -[id number]-- recovery nurse spoke with patient and was attempting to get her into detox. Patient stated she would call places on her own. When looking for patient appears she left without completing treatment or may have found a detox center. -[id number]--patient found in [place] > appears under the influence -[id number]--patient accepted to [facility] in [place]. patiented Koffied from ED Medical Decision Making Medical Decision Making [facility] Narrative: 45-year-old female with a past medical history bipolar, MDD, opiate dependence, presenting to the ED complaining of relapse on cocaine and fentanyl few days ago. on exam vital signs stable, NAD, nontoxic appearing. will obtain recovery team consult. no evidence of withdrawal at this time plan: MORE, recovery consult Please refer to course for remaining clinical decision making, interpretation of labs/imaging results, and discussions with consultants and/or family members. Differential Diagnosis Differential Diagnoses: The differential diagnosis associated with the presentation includes As above Admission/Observation Consideration of admission/observation: Escalation of care including admission/observation considered Consult Healthcare Provider Management of the patient was discussed with: Behavioral Health Provider Lab Data [facility] Lab Attestation statement: I reviewed the patient's lab results. Labs: Lab Results 10/18/25 Range/Units 15:04 Urine Opiates Screen POSITIVE H (Not Detect) Ur Buprenorphine Scrn Not Detected (Not Detect) ng/mL Ur Oxycodone Screen Not Detected (Not Detect) ng/mL Urine Methadone Screen Not Detected (Not Detect) ng/mL Urine Fentanyl Screen POSITIVE H (Not Detect) Ur Barbiturates Screen Not Detected (Not Detect) Ur Phencyclidine Scrn Not Detected (Not Detect) Ur Amphetamines Screen Not Detected (Not Detect) U Benzodiazepines Scrn Not Detected (Not Detect) Urine Cocaine Screen POSITIVE H (Not Detect) U Marijuana (THC) Screen Not Detected (Not Detect) External Record Review External record reviewed: Inpatient record, Office record, Outpatient record, Prior outpatient labs, Prior outpatient radiology, Primary care record and Outside ED record Tests considered The following testing was considered but not selected: As above Prescription Management I considered prescription management with: Other Chronic Conditions Patient?s care impacted by: Other Social Determinants Patient?s care significantly limited by Social Determinants of Health including: Inadequate housing, Low income, Alcoholism and drug addiction in family, Problems related to primary support group, Unemployment and Other Social Determinant of Health Discharge Plan Discharge Clinical Impression: Substance abuse Patient Disposition: Xfer Other Transfer Details: [facility] detox in [place] Instructions: Polysubstance Use Disorder (ED) Additional Instructions: you are being transported to [facility] in [place] Opiate use disorder You were seen in our Emergency Department today for treatment of opiate use disorder. You may have been dosed with medication for opiate use disorder (MOUD) in the form of suboxone or methadone. You may experience feeling some withdrawal symptoms and this is normal. The? dose in the Emergency Department is a starting dose and meant to be titrated up once you follow up with a clinic. Please do not feel discouraged, it is a process. The nurse has reviewed with you where to follow up and what information to bring with you, to continue treatment. You also may have been given naloxone (narcan) to take home with you. This medication is used to potentially treat opiate overdose. If you decide you want to stop or cut down on how much you?re using, you can call or walk into our outpatient Addiction Treatment office: [facility] (M-F 9am-5p) [address] [place] [address], [address] [phone] You may have been provided with safer injection?items, please take time to take care of YOU and your health. Use new supplies whenever possible to lessen the chances of infections and other illnesses.? ?If you need more supplies, please go [facility],? [address] [place] [address] OR you can call or text to coordinate delivery of safer supplies. You were also provided a list of several treatment providers in the area.? If you experience any worsening symptoms you cannot control please return to the ED or call 911. Please follow up at your next appointment. Things to look out for are fevers, chest pain, shortness of breath, severe pain, dizziness, fainting or any other concerns. Prescriptions: No Action aripiprazole 5 mg tablet 5 mg PO DAILY topiramate 50 mg tablet 50 mg PO DAILY methadone [Methadone Intensol] 10 mg/mL Concentrate 65 mg PO DAILY albuterol sulfate [Ventolin HFA] 90 mcg/actuation HFA aerosol inhaler 1 puff INHALATION QID PRN (Reason: wheezing) escitalopram oxalate 10 mg tablet 10 mg PO DAILY budesonide-formoterol [Symbicort] 160-4.5 mcg/actuation HFA aerosol inhaler 2 inh inhalation BID Referrals: [facility] [Provider Group] Print Language: Korean
--- NOTE | 2025-10-18 12:42 | PC.NURSE ---
PT TALKING TO REPAIR OPERATOR
--- OUTSIDE RECORDS SUMMARY | 2025-10-18 13:01 | XMS_ITS | Patient Health Record ---
Author Organization [facility] Address [address] [place] [address] Care Team Providers Care Ground Hand Name Role Phone BRIDGETTEGilbert JOYA Unavailable [phone] Unavailable [phone] Allergies No Known Allergies Reason For Referral No Information Medications Medication SIG (Take, Route, Frequency, Duration) Notes Start Date End Date Status Symbicort Active Lexapro Active SEROquel Active Mirena inserted 08/31/2015 Active Social History Sex Assigned At : [...] with: Men Number of male partners 1 [facility] partner Your sexual activities include: oral intercourse, [...] was provided. 6 Counseling Was Provided By: lydper Drugs/Alcohol: Social Info Question Answer Notes Drug/Alcohol Use Do you or have you used drugs? No Do you or have you used alcohol? No Food Access: Social Info Question Answer Notes Food Access The Client's current access to food is Secure Food Access Relationships: Social Info Question Answer Notes Relationships Has the client experienced any of the following: Client has never experienced harmful relationships DO NOT USE - Travel Plans: Social Info Question Answer Notes Travel Plans DO NOT USE - Has cli ent traveled to any Zika affected areas? Yes DO NOT USE - Has partner traveled to any Zika af fected areas? Yes DO NOT USE - Is client planning to travel to any Zika affected areas? No DO NOT USE - Is partner planning to travel to an y Zika affected areas? No Housing Social Info Question Answer Notes Housing The client's current living situation is: stable housing Tobacco Use: Social Info Question Answer Notes Tobacco Use: Do you/have you used tobacco? No Client Vapes Tobacco Smoking Status Former smoker Section Notes: Declines STI testing Encounters Encounter Location Date Provider Diagnosis [address] [phone] 10/14/[address] Encounter for gynecological examination (general) (routine) without abnormal findings Z01.419 ; Encounter for screening for human papillomavirus (HPV) Z11.51 and IUD Removal Z30.432 Assessments Encounter Date Diagnosis (ICD Code) Assessment Notes Treatment Notes Treatment Clinical Notes Section Notes 10/14/2025 Encounter for screening for human papillomavirus (HPV) (ICD-10 - Z11.51) 10/14/2025 Encounter for gynecological examination (general) (routine) without abnormal findings (ICD-10 - Z01.419) Discussed routine screenings and self breast/chest awareness. Mammogram screening recommendations reviewed. Clt up to date. Pap guidelines reviewed and pap collected. Will confirm follow up plan regarding pap screening given hx of abn once results back. 10/14/2025 IUD Removal (ICD-10 - Z30.432) IUD strings present on exam today. Clt provided verbal consent for removal today. Pap consent signed after procedure. Clt tolerated well. Clt to schedule Nexplanon insertion. Condom use encouraged. Clt declined urine PT today Plan Of Treatment Pending Test Test Name Order Date IGP, Apt HPV,rfx [id number] Next Appt Details Provider Name:[address]RI[address], 09:00:00 AM, [address] [facility], [place], [place], [id number], Insurance Providers Payer Name Payer Address Payer Phone Subscriber Number Group Number Insured Name Patient Relationship to Insured Coverage Start Date Coverage End Date [place]ICA[place] ATT CLAIMS [address] [place] [id number] Sol Arango Self - patient is the insured Medical (General) History Medical History History ICD Code Asthma Abnormal paps- >10 years ago, 2017 +Hep C treated BV Treated proph for syphilis 02/2016 after known exposure HSV 2 Hx of IVDA, last use Surgical History Surgery Date(Month/Year) Lung biopsy to r/o malignancy after snor ting cocaine 2012 C-sec 2005 C-sec 2009 Gastric Bypass 2022 Hospitalization History Reason Date(Month/Year)
--- NOTE | 2025-10-18 14:21 | MHC.RECOVRN ---
Addendum entered by Jovanny Wolf RN 10/18/25 14:27: Tox screen to be sent as soon as available. Original Note: Pt requesting for [facility] referrals to be sent on her behalf. Reports she had a recurrence on $30 worth of crack cocaine and 1 bag of heroin consumed via smoking and intranasaly. Prior to this she was at a residential program with [facility] for 2 months. She was told she cannot return until she receives treatment. Longest period of sobriety was 3 years. Precipitants of the recurrence is her sisters 3 weeks ago and worsening depression as a result. [facility] referrals have been sent for review. Pt states she is otherwise homeless. Reports that she does not want to go to [facility] .
--- NOTE | 2025-10-18 15:06 | MHC.RECOVRN ---
Pt has yet to provide a urine sample for UDS despite encouragement and fluids provided.
[2025-10-18 15:38] LABS: Cannabinoid Screen Urine Not Detected (Not Detect)
--- NOTE | 2025-10-18 15:47 | MHC.RECOVRN ---
Pt will be going to [facility] in [place] for detox. Pt and provider in agreement. This RN will call [facility] for pt. Address: [address] [place] [address].
--- NOTE | 2025-10-18 16:38 | PC.NURSE ---
DC by provider
== END 2025-10-18 16:38 | disposition other institution (70) ==
PROVIDERS: Physician Assistant; Emergency Provider Emergency Medicine
DX: F14.10 Cocaine abuse, uncomplicated (principal); F11.10 Opioid abuse, uncomplicated; F33.1 Major depressive disorder, recurrent, moderate; Z87.01 Personal history of pneumonia (recurrent); F17.210 Nicotine dependence, cigarettes, uncomplicated; Z79.899 Other long term (current) drug therapy
CPT/HCPCS: 80307; 99282; 99285; S9485